=== PATIENT | male | born 1945 | race Hispanic/Latino ===

== ENCOUNTER → 2022-01-08 | Outpatient (CLI) | payer OTHER | END | disposition home or self-care (01) | LOC: RAH 13:55 | PROVIDERS: ATTEND Internal Medicine | DX: I65.23 Occlusion and stenosis of bilateral carotid arteries (principal); R09.89 Other specified symptoms and signs involving the circulatory and respiratory systems | CPT/HCPCS: 93880 ==

== ENCOUNTER → 2022-03-27 | Outpatient (CLI) | payer OTHER, MEDICARE ==
[~2022-03-27] MED LIST: IOHEXOL 350 MG/ML 100ML INFUS..BTL IV ONE
== END | disposition home or self-care (01) ==
LOC: RAH 10:03
PROVIDERS: ATTEND Internal Medicine
DX: R09.89 Other specified symptoms and signs involving the circulatory and respiratory systems (principal); I65.22 Occlusion and stenosis of left carotid artery
CPT/HCPCS: 70498; Q9967

== ENCOUNTER → 2022-05-23 | Outpatient (CLI) | payer OTHER | END | disposition home or self-care (01) | LOC: RAH 13:07 | PROVIDERS: ATTEND Internal Medicine Cardiovascular Disease | DX: Z13.6 Encounter for screening for cardiovascular disorders (principal); I51.5 Myocardial degeneration | CPT/HCPCS: 75571 ==

== ENCOUNTER → 2022-07-05 | Outpatient (CLI) | payer OTHER, MEDICARE ==
[~2022-07-05] MED LIST changes: +ACETAMINOPHEN PO; +ASPI-1197 PO; +ATOR20TA65 PO; +BISA-189 PO; +CALC-1125 PO; +CLOP75TA32 PO; +FAMO20TA8 PO; +FISH1CAP50 PO; +GLIP10TA9 PO; -IOHEXOL 350 MG/ML 100ML INFUS..BTL IV ONE; +IRON PO; +LINA5TAB PO; +LISI10TA24 PO; +METO25TA6 PO; +TERA10CA4 PO; +VITAMIN B 12 PO; +VITAMIN D PO
== END | disposition home or self-care (01) ==
LOC: RAH 09:47
PROVIDERS: ATTEND Internal Medicine
DX: N64.4 Mastodynia (principal)
CPT/HCPCS: 76641

== ENCOUNTER → 2022-09-19 | Outpatient (CLI) | payer OTHER ==
[~2022-09-19] MED LIST changes: +ACET-2743 PO; -ACETAMINOPHEN PO; +AEC81 PO; -ASPI-1197 PO; +tylenol arthritis PO
== END | disposition home or self-care (01) ==
LOC: SHCH 11:19
PROVIDERS: ATTEND Internal Medicine Cardiovascular Disease
DX: I65.23 Occlusion and stenosis of bilateral carotid arteries (principal); I48.0 Paroxysmal atrial fibrillation
CPT/HCPCS: 93880

== ENCOUNTER → 2022-12-26 | Outpatient (CLI) | payer OTHER | END | disposition home or self-care (01) | LOC: SHCH 13:34 | PROVIDERS: ATTEND Internal Medicine Cardiovascular Disease | DX: R22.43 Localized swelling, mass and lump, lower limb, bilateral (principal); I65.22 Occlusion and stenosis of left carotid artery | CPT/HCPCS: 93970 ==

== ENCOUNTER → 2023-11-25 | Outpatient (CLI) | payer OTHER | END | disposition home or self-care (01) | LOC: SHCH 10:07 | PROVIDERS: ATTEND Internal Medicine Cardiovascular Disease | DX: I87.2 Venous insufficiency (chronic) (peripheral) (principal) | CPT/HCPCS: 93971 ==

== ENCOUNTER 2024-06-14 23:20 | Inpatient (IN) | payer OTHER ==
[~2024-06-14] VITALS: Ht 182.9 cm; Wt 92.3 kg
[~2024-06-14 23:20] MED LIST changes: +GLIP10TA16 PO; -GLIP10TA9 PO
--- NOTE | 2024-06-14 23:49 | ERN ---
General Chief Complaint: Syncope Stated Complaint: NEAR SYNCOPE Time Seen by MD: 23:27 History of Present Illness Initial Comments Patient comes in with complaint of weakness after a bowel movement. Per patient is insulin-dependent diabetic. His sugars typically run in the 200s. He takes insulin twice a day. However this week it has been running in the 300s. Tonight he had a normal bowel movement per patient although states that he seems to have some difficulty with bowel movements. She was watching him. Afterwards he got up and tried to walk back. However he got weak and was having trouble walking. Per he got sweaty. He stated that he could not walk. He was caught by family and gently laid down. He did not get hurt. He denies any injury. He denies any pain. He states that his bowel movement was normal in color for him. states it was a dark green. However this is unusual for him to have an episode like this Allergies: Coded Allergies: No Known Allergies (Unverified Allergy, Unknown, 05/23/22) Home Meds Reported Medications [tylenol arthritis] No Conflict Check, 1 TAB PO BID 07/20/22 Acetaminophen (Tylenol Extra Strength) 500 Mg Tablet, 500 MG PO AD PRN for PAIN, TAB 07/20/22 Aspirin (ASPIRIN 81 MG ECTAB) 81 Mg Ectab, 81 MG PO AM, TAB.EC 07/20/22 Famotidine (Famotidine) 20 Mg Tablet, 20 MG PO BID, TAB 06/29/22 Bisacodyl (Dulcolax 5Mg Tab) 5 Mg Tablet.dr, 5 MG PO DAILY PRN for constipation, TAB 06/29/22 Metoprolol Tartrate (Metoprolol Tartrate) 25 Mg Tablet, 25 MG PO BID, TAB 06/29/22 Terazosin HCl (Terazosin HCl) 10 Mg Capsule, 10 MG PO HS, CAP 06/29/22 Calcium Carbonate (Calcium) 600 Mg Tablet, 600 MG PO BID, TAB 06/29/22 Clopidogrel Bisulfate (Clopidogrel) 75 Mg Tablet, 75 MG PO AM, TAB 06/29/22 Atorvastatin Calcium (Atorvastatin Calcium) 20 Mg Tablet, 20 MG PO AM, TAB 06/29/22 Glipizide (Glipizide) 10 Mg Tablet, 10 MG PO BID, TAB 06/29/22 Linagliptin (Tradjenta) 5 Mg Tablet, 5 MG PO AM, TAB 06/29/22 Lisinopril (Lisinopril) 10 Mg Tablet, 10 MG PO AM, TAB 06/29/22 [Vitamin B 12] 1,000 No Conflict Check, 1 TAB PO AM 06/29/22 [Vitamin D] 25 No Conflict Check, 25 MCG PO AM 06/29/22 [Iron] No Conflict Check, 325 MG PO AM 06/29/22 Dumont-3 Fatty Acids/Fish Oil ([place] 3 Fish Oil Softgel) 1 Each Capsule.dr, 1 EACH PO HS, CAP 06/29/22 Past Medical History Past Medical History: Diabetes-Type II, High Cholesterol, Hypertension Past Surgical History: Unknown Surgical History Other: UMBILICAL HERNIA Social History Social History: Negative, Lives with family ROS Dictation Ten systems reviewed and negative except as noted in HPI Physical Exam Physical Exam Dictation GEN: non toxic, NAD HEENT: atrumatic, PERRL, EOMI, conjunctivae normal NECK: Soft supple nontender Heart RRR, no murmurs Chest: No deformity Lungs: Lungs clear to auscultation Ab: Soft nondistended nontender Back: No midline step-offs. No gross deformity. No CVA tenderness : m/s: Moving all four extremities. No gross deformity Neuro: CN 2-12 intact. Moving all four extremities. Psych: Cooperative Results Laboratory and Microbiology Lab and Micro Result Laboratory Tests Test 06/14/24 23:54 06/15/24 00:29 06/15/24 01:02 White Blood Count 6.6 K/uL (4.8-10.8) Red Blood Count 4.06 MIL/uL (4.50-6.20) L Hemoglobin 13.0 g/dL (14.0-18.0) L Hematocrit 37.1 % (42-54) L Mean Corpuscular Volume 91.4 fL (79-99) Mean Corpuscular Hemoglobin 32.0 pg (27.0-33.0) Mean Corpuscular Hemoglobin Concent 35.0 g/dL (32.0-36.0) Red Cell Distribution Width 12.5 % (11.0-15.5) Platelet Count 121 K/uL (130-400) L Mean Platelet Volume 10.7 fL (7.5-10.5) H Immature Granulocyte % (Auto) 0.5 % (0-1) Neutrophils (%) (Auto) 73.0 % (40.0-77.0) Lymphocytes (%) (Auto) 14.9 % (21.0-51.0) L Monocytes (%) (Auto) 11.1 % (3.0-13.0) Eosinophils (%) (Auto) 0.2 % (0.0-8.0) Basophils (%) (Auto) 0.3 % (0.0-5.0) Neutrophils # (Auto) 4.8 K/uL (1.8-7.7) Lymphocytes # (Auto) 1.0 K/uL (1.0-4.8) Monocytes # (Auto) 0.7 K/uL (0.1-1.0) Eosinophils # (Auto) 0.01 K/uL (0.00-0.70) Basophils # (Auto) 0.02 K/uL (0.00-0.20) Absolute Immature Granulocyte (auto 0.03 K/uL (0-1) Nucleated Red Blood Cells 0.0 % (0.0-0.19) Sodium Level 136 mmol/L (136-145) Potassium Level 3.9 mmol/L (3.5-5.1) Chloride Level 98 mmol/L (101-111) L Carbon Dioxide Level 33 mmol/L (21-32) H Blood Urea Nitrogen 32 mg/dL (7-18) H Creatinine 2.1 mg/dL (0.5-1.3) H Glomerular Filtration Rate Calc 31 mL/min (>90) Random Glucose 250 mg/dL (70-105) H Lactic Acid Level 1.7 mmol/L (0.8-2.5) Total Calcium 9.0 mg/dL (8.5-10.1) Total Bilirubin 4.9 mg/dL (0.2-1.0) H Aspartate Amino Transf (AST/SGOT) 1060 U/L (10-37) *H Alanine Aminotransferase (ALT/SGPT) 954 U/L (12-78) *H Alkaline Phosphatase 516 U/L (50-136) H Total Creatine Kinase 200 U/L (21-232) Troponin I High Sensitivity 14.7 ng/L (4-75) Total Protein 6.5 g/dL (6.0-8.3) Albumin 3.0 g/dL (3.5-5.0) L Procalcitonin 0.49 ng/mL (0.05-0.5) Urine Color YELLOW (YELLOW) Urine Appearance CLEAR (CLEAR) Urine pH 5.5 (5.0-8.0) Urine Specific [place] 1.025 (1.001-1.031) Urine Protein NEGATIVE mg/dL (NEGATIVE) Urine Glucose (UA) >=1000 mg/dL (NEGATIVE) H Urine Ketones NEGATIVE mg/dL (NEGATIVE) Urine Occult Blood NEGATIVE (NEGATIVE) Urine Nitrate NEGATIVE (NEGATIVE) Urine Bilirubin NEGATIVE mg/dL (NEGATIVE) Urine Urobilinogen 2.0 mg/dL (0.2-1.0) H Urine Leukocyte Esterase NEGATIVE Ivonne/uL Urine RBC 2-5 /HPF (0-1) H Urine WBC 6-10 /HPF (0-1) H Urine Squamous Epithelial Cells RARE /HPF (0-2) Urine Bacteria RARE /HPF (None Seen) Lipase 39 U/L (16-77) Labs Reviewed?: Yes EKG/XRAY/US/CT/MRI EKG Comment Sinus rhythm 75 first-degree AV block HI of 219 QRS of 101 QTC of 458 left axis deviation QRS complexes narrow nonspecific STT wave flattening and changes. Interpretation abnormal Ultrasound Comment DISCUSSED WITH EDUCATION RESEARCH ANALYST. STONE AND SLUDGE SEEN ON CT BUT NOT WELL VISUA LIZED ON ULTRASOUND. EXAM LIMITED THERE IS EXCESSIVE BOWEL GAS. COMMON BILE DUCT 5 MM. GALLBLADDER WALL NOT THICKENED. [address] Scan Comment CT ABDOMEN/PELVIS W/O CONTRAST HISTORY: Elevated liver function tests COMPARISON: None TECHNIQUE: Multiple sequential axial images of the abdomen and pelvis were obtained from the dome of the diaphragm through symphysis pubis. Patient was not given contrast through intravenous route. Oral contrast was not given. FINDINGS: No pleural effusion is seen bilaterally. There is no evidence of parenchymal disease or pulmonary nodule of the visualized lower lungs. Degenerative changes of the thoracolumbar spine are present. The heart is not enlarged. Liver measures 16.4 cm. Calcified granuloma are seen in the liver and spleen. Gallbladder is distended with gallstones and sludge material. There is right anterior renal cyst measuring 4.5 cm. The liver, spleen, adrenal glands and pancreas are unremarkable. There is no evidence of hydronephrosis bilaterally. No evidence of renal stone is seen. Fecal material is seen in the colon. There are normal size retroperitoneal and mesenteric lymph nodes. No ascites is seen. Atherosclerotic changes are present. Pelvic sidewalls are symmetric bilaterally. There are bilateral inguinal hernias with fat content. Prostate gland measures 6.1 cm. Bladder is well distended without wall thickening. IMPRESSION: 1. Distended gallbladder with gallstones and sludge material. Fecal material in the colon. There are bilateral inguinal hernias with fat content. CT was performed with one or more following dose reduction techniques: automated exposure control, adjustment of the mA and kv according to patient's size, or use of a iterative reconstruction technique. DICTATED BY: ADRIANE REDMOND MD DATE: 06/15/24152 ELECTRONICALLY SIGNED BY: ADRIANE REDMOND MD DATE: 06/15/24205 MDM Patient has elevated LFTs and T bili. Multiple differentials considered. However no tenderness to epigastric of the right upper quadrant. Negative Yin's on exam. Add lipase. Multiple differentials considered. We will do ultrasound of the abdomen pelvis as well as CT. Patient has elevated LFTs and T bili and alk-phos. Lipase normal. On CT abdomen has gallbladder stones and sludge. Pending ultrasound. No right upper quadrant tenderness. No white count. No fever. However we will cover empirically with Zosyn at this point. ULTRASOUND SHOWS NORMAL COMMON BILE DUCT AND GALLBLADDER WALL. NO PERICHOLECYSTIC FLUID. Patient does have notably elevated LFTs. This was discussed with Dr. Phillips patient's primary. Patient will be admitted for further evaluation. ED Course Orders Procedure Category Date Status Time Vital Signs Per CPOE 06/14/24 Transmitted Routine 23:28 Oxygen By Nc/Pulse Ox CPOE 06/14/24 Transmitted 23:28 Iv Insertion CPOE 06/14/24 Transmitted 23:28 Cbc With Differential LAB 06/14/24 Complete 23:28 Cardiac Panel LAB 06/14/24 Complete 23:28 12 Lead Ekg Tracing- EKG 06/14/24 Logged Technical 23:28 0.9%Nacl 1000ml (Ns PHA 06/15/24 Complete 1000ml) 00:00 Urinalysis LAB 06/14/24 Complete W/Microscopic 23:44 Procalcitonin LAB 06/14/24 Complete 23:44 Lactic Acid LAB 06/14/24 Complete 23:44 Comprehensive LAB 06/14/24 Complete Metabolic Panel 23:54 Lipase LAB 06/15/24 Complete 00:50 Us Abdominal Ruq\Ltd US 06/15/24 Taken 00:50 Ct Abdomen/Pelvis W/O CT 06/15/24 Resulted Contrast 00:52 Culture Urine SRIDHAR 06/15/24 In Process 01:11 Zosyn 3.375gm+Ns 50ml PHA 06/15/24 Complete (Zosyn 3.375gm+Ns 02:30 Edm Admit Bridge Order ADM 06/15/24 Transmitted 03:25 Current Medications Medications (Trade) Dose Ordered Sig/Mina Route PRN Reason Start Time Stop Time Status Last Admin Dose Admin Piperacillin Sod/ Tazobactam Sod (Zosyn 3.375gm+NS 50ml) 3.375 gm ONCE ONCE IV 06/15/24 02:30 06/15/24 02:33 DC 06/15/24 02:44 Sodium Chloride 1,000 ml @ 999 mls/hr Q1H1M IV 06/15/24 00:00 06/15/24 02:32 DC 06/15/24 00:28 Vital Signs Date Time Temp Pulse Resp B/P (MAP) Pulse Ox O2 Delivery O2 Flow Rate FiO2 06/15/24 02:20 70 20 120/54 95 Room Air* 0 21 06/15/24 00:38 64 18 118/42 95 Room Air* 0 21 06/14/24 23:57 76 18 92 Room Air* 0 21 06/14/24 23:24 97.9 76 18 108/54 95 Room Air 0 DX & DISP Disposition: Inpatient Departure Impression: Primary Impression: Near syncope Additional Impression: Abnormal LFTs Condition: Stable Referrals: JIM PHILLIPS MD (PCP) BRO PAYNE MD Jun 14, 2024 23:49
[2024-06-15] VITALS (8 sets, daily range): BP systolic 108–132; BP diastolic 52–62; PULSE 67–81; RESP 16–20; TEMP 98.1–100; O2SAT 95
[2024-06-15 00:03] LABS: BASOPHILS # (AUTO) 0.02 K/uL (0.00-0.20); BASOPHILS % (AUTO) 0.3 % (0.0-5.0); EOSINOPHILS # (AUTO) 0.01 K/uL (0.00-0.70); EOSINOPHILS % (AUTO) 0.2 % (0.0-8.0); HEMATOCRIT 37.1 % (42-54); IMMATURE GRANULOCYTE ABSOLUTE 0.03 K/uL (0-1); LYMPHOCYTES % (AUTO) 14.9 % (21.0-51.0); MEAN CORPUSCULAR VOLUME 91.4 fL (79-99); MONOCYTES # (AUTO) 0.7 K/uL (0.1-1.0); MONOCYTES % (AUTO) 11.1 % (3.0-13.0); NEUTROPHILS # (AUTO) 4.8 K/uL (1.8-7.7); PLATELET COUNT (AUTO) 121 K/uL (130-400); RED BLOOD CELL COUNT(AUTO) 4.06 MIL/uL (4.50-6.20); RED CELL DISTRIBUTION WIDTH 12.5 % (11.0-15.5); WHITE BLOOD COUNT (AUTO) 6.6 K/uL (4.8-10.8)
[2024-06-15 00:14] LABS: CREATININE 2.1 mg/dL (0.5-1.3); POTASSIUM 3.9 mmol/L (3.5-5.1)
[2024-06-15] MEDS: 0.9%NACL 1000ML 1,000 ML IV SCH ×2 (00:28→04:11)
[2024-06-15 00:30] LABS: BILIRUBIN,TOTAL 4.9 mg/dL (0.2-1.0); TOTAL PROTEIN, SERUM 6.5 g/dL (6.0-8.3)
[2024-06-15 01:11] LABS: APPEARANCE,URINE CLEAR (CLEAR); BACTERIA,URINE RARE /HPF (None Seen); BILIRUBIN,URINE NEGATIVE (NEGATIVE); COLOR,URINE YELLOW (YELLOW); GLUCOSE, URINE (UA) >=1000 mg/dL (NEGATIVE); KETONES,URINE NEGATIVE (NEGATIVE); LEUKOCYTE ESTERASE ,URINE NEGATIVE Leu/uL (NEGATIVE); NITRATE,URINE NEGATIVE (NEGATIVE); OCCULT BLOOD,URINE NEGATIVE (NEGATIVE); PH,URINE 5.5 (5.0-8.0); PROTEIN,URINE NEGATIVE (NEGATIVE); SQUAMOUS EPITHELIAL CELL,UR RARE /HPF (0-2)
--- NOTE | 2024-06-15 02:06 | HMCIMG ---
CT ABDOMEN/PELVIS W/O CONTRAST HISTORY: Elevated liver function tests COMPARISON: None TECHNIQUE: Multiple sequential axial images of the abdomen and pelvis were obtained from the dome of the diaphragm through symphysis pubis. Patient was not given contrast through intravenous route. Oral contrast was not given. FINDINGS: No pleural effusion is seen bilaterally. There is no evidence of parenchymal disease or pulmonary nodule of the visualized lower lungs. Degenerative changes of the thoracolumbar spine are present. The heart is not enlarged. Liver measures 16.4 cm. Calcified granuloma are seen in the liver and spleen. Gallbladder is distended with gallstones and sludge material. There is right anterior renal cyst measuring 4.5 cm. The liver, spleen, adrenal glands and pancreas are unremarkable. There is no evidence of hydronephrosis bilaterally. No evidence of renal stone is seen. Fecal material is seen in the colon. There are normal size retroperitoneal and mesenteric lymph nodes. No ascites is seen. Atherosclerotic changes are present. Pelvic sidewalls are symmetric bilaterally. There are bilateral inguinal hernias with fat content. Prostate gland measures 6.1 cm. Bladder is well distended without wall thickening. IMPRESSION: 1. Distended gallbladder with gallstones and sludge material. Fecal material in the colon. There are bilateral inguinal hernias with fat content. CT was performed with one or more following dose reduction techniques: automated exposure control, adjustment of the mA and kv according to patient's size, or use of a iterative reconstruction technique.
[2024-06-15] MEDS: ZOSYN 3.375GM +NS 50ML IV ONE (02:44)
[2024-06-15] MEDS ORDERED: PoTASSium chloRIDE 20MEQ/100ML 100 ML IV PRN (04:00)
[2024-06-15] MEDS ORDERED: morPHINE 2 MG SYG IVP PRN (04:00)
[2024-06-15] MEDS ORDERED: ondanSETRON 4MG INJ IVP PRN (04:00)
[2024-06-15] MEDS: cefTRIAXone 1G VIAL IVPB SCH (04:11)
[2024-06-15] MEDS: INSULIN humuLIN R 100 UNIT/ML 3ML SQ SCH (06:00)
--- NOTE | 2024-06-15 07:34 | EKG ---
[facility] Test Date: 2024-06-14 Test Time: 23:35:01 Pat Name: JESUS SARMIENTO Department: [facility] Room: 228 1 Gender: M Technical Support Engineer: [id number] : 1945 Requested By: BRO PAYNE Order Number: [id number] Reading MD: Red Bergman Measurements Intervals [place] Rate: 75 P: 52 PA: 219 QRS: -14 QRSD: 101 T: 52 QT: 411 QTc: 458 Interpretive Statements Sinus rhythm Borderline prolonged PA interval Compared to ECG 09/11/2022 12:12:06 No significant changes Electronically Signed On 06-16-2024 06:55:58 CONVEYOR BELT INSTALLER by Red Bergman Please click the below link to view image of tracing.
--- NOTE | 2024-06-15 08:30 | HMCIMG ---
US ABDOMINAL RUQ\E\LTD HISTORY: elevated lft COMPARISON: None FINDINGS: There is mild fatty infiltration of the liver. There are no focal liver masses. The liver is not enlarged.Previous CT same day showed definite small stones in the gallbladder. These are not well visualized by ultrasound. The gallbladder appears otherwise normal, there is no wall thickening or pericholecystic edema. Common duct is normal at 5 mm.. There is a 4 cm simple appearing cyst right kidney. Right kidney is otherwise normal with no evidence of mass, hydronephrosis or stone.The pancreas is obscured by overlying bowel gas. Intrahepatic biliary tree does not appear distended. IMPRESSION: 1. Previous CT the same day showed definite stones, these are not well visualized on the current ultrasound. 2. Gallbladder appears otherwise normal with no wall thickening or pericholecystic edema. 3. 4 cm right renal cyst. 4. Otherwise unremarkable exam although the pancreas was not well visualized.
[2024-06-15] MEDS ORDERED: APIX5TAB PO (08:46)
[2024-06-15] MEDS ORDERED: DRON400T7 PO (08:46)
[2024-06-15] MEDS ORDERED: ASPI-1197 PO (08:46)
[2024-06-15] MEDS ORDERED: EMPA10TA PO (08:46)
[2024-06-15] MEDS ORDERED: LATA2.5D14 OD (08:46)
[2024-06-15] MEDS ORDERED: DOCU100C33 PO (08:46)
[2024-06-15] MEDS ORDERED: FURO20TA4 PO (08:46)
[2024-06-15] MEDS ORDERED: SEMA0.258 SQ (08:46)
[2024-06-15] MEDS ORDERED: TERA5CAP4 PO (08:46)
[2024-06-15] MEDS ORDERED: LORA10TA7 PO (08:46)
[2024-06-15] MEDS ORDERED: FAMO20TA8 PO (08:46)
[2024-06-15] MEDS ORDERED: METO25TA6 PO (08:46)
[2024-06-15] MEDS ORDERED: FERS325 PO (08:46)
[2024-06-15] MEDS ORDERED: INSU3INS3 SQ ×2 (08:46)
[2024-06-15] MEDS ORDERED: ATOR20TA65 PO (08:46)
--- NOTE | 2024-06-15 09:59 | NUR ---
PT WAS TAKEN DOWN TO MRI FOR MRCP AND FAMILY MEMBERS HAD JUST ARRIVED AND WERE ADVISED OF THE PROCEDURE.
--- NOTE | 2024-06-15 11:17 | HMCIMG ---
MRCP(ABDWO)CHOLANGIOPANCREATOG REASON: ELEVATED LIVER ENZYMES COMPARISON: CT abdomen and pelvis 07/13/2024 TECHNIQUE: Routine images are obtained in the coronal and axial plane with T1, proton density, T2 and gradient recalled sequences. MRCP images were generated following coronal fluid sensitive acquisition followed by maximum pixel intensity projection technique. FINDINGS: There is a very small stones present in an otherwise normal-appearing gallbladder. There is no wall thickening or edema. Common duct is normal caliber at 5 mm. There are no focal filling defects to suggest choledocholithiasis however the visualized gallstones are very small and may be difficult to see on MRCP. There are no focal liver lesions. The pancreas appears normal, there is no evidence of mass or pancreatitis. Visualized portions of the kidneys appear normal. There are no focal fluid collections. There is no free fluid. IMPRESSION: 1. Multiple very small stones in the gallbladder, there is no wall thickening or edema. 2. Common duct appears normal at 5 mm and there is no MR CP evidence of choledocholithiasis.
--- NOTE | 2024-06-15 12:37 | HP ---
HISTORY AND PHYSICAL Date of Visit: Jun 15, 2024 Time of Visit: 12:37 ADMISSION DATE: Jun 15, 2024 at 03:30 CC: SYNCOPE HPI: This is a 78 yr old man with hx PAfib on chronic anticoagulation who presented with complaint of weakness after a bowel movement. Per patient is insulin- dependent diabetic. His sugars typically run in the 200s and they had been running on the high side in the past few days. Despite taking his insulin twice a day his BS had been running in the 300s. Tonight he had a normal bowel movement per patient although states that he seems to have some difficulty with bowel movements. She was watching him. Afterwards he got up and tried to walk back. However he got weak and was having trouble walking. Per he got sweaty. He stated that he could not walk. He was caught by family and gently laid down after they described him passing out when they tried to pick him up. Th sat him back down and he did not get hurt. He denies any injury. He denies any pain. He states that his bowel movement was normal in color for him. states it was a dark green. However this is unusual for him to have an episode like this. He has had decreased po in take with low appetite for the past 2-3 days. He denied any fevers chills nausea or vomiting or any abdominal pain. 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 Smith on 07/24/22 PERSISTENT AFIB SECONDARY HYPERCOAGULABLE STATE CHRONIC ANTI COAGULATION ON ELIQUIS DYSPHASIA AND DYSPHONIA KERATOCONJUNCTIVITIS SOCIAL HISTORY: LIVES LOCALLY WITH NO CURRENT ALCOHOL TOBACCO OR DRUG ABUSE FAMILY HISTORY: + DM HTN CVD ^ Patient History: Cardiovascular disease MOTHER, Diabetes mellitus FATHER, BROTHER, BROTHER, BROTHER, BROTHER BROTHER SISTER SISTER SISTER SON Hypertension MOTHER, Allergies: Coded Allergies: No Known Allergies (Unverified Allergy, Unknown, 05/23/22) Scheduled Apixaban (Eliquis), 5 MG PO BID Aspirin (Aspirin), 81 MG PO DAILY Atorvastatin Calcium (Atorvastatin Calcium), 20 MG PO HS Dronedarone Hydrochloride (Multaq), 400 MG PO BID Empagliflozin (Jardiance), 10 MG PO DAILY Ferrous Sulfate (Ferrous Sulfate), 325 MG PO DAILY Furosemide (Furosemide), 20 MG PO DAILY Insulin Glargine,Hum.rec.anlog (Lantus Solostar), 22 UNIT SQ AM Insulin Glargine,Hum.rec.anlog (Lantus Solostar), 12 UNIT SQ PM Latanoprost (Latanoprost), 1 DROP OD BID Loratadine (Loratadine), 10 MG PO DAILY Metoprolol Tartrate (Metoprolol Tartrate), 25 MG PO BID Semaglutide (Ozempic), 0.25 MG SQ QWEEK Terazosin HCl (Terazosin HCl), 5 MG PO DAILY Scheduled PRN Docusate Sodium (Docusate Sodium), 100 MG PO DAILY PRN for CONSTIPATION Famotidine (Famotidine), 20 MG PO DAILY PRN for HEARTBURN Discontinued Medications Acetaminophen (Tylenol Extra Strength), 500 MG PO AD PRN for PAIN, (Reported) Aspirin (Aspirin 81 Mg Ectab), 81 MG PO AM, (Reported) Atorvastatin Calcium (Atorvastatin Calcium), 20 MG PO AM, (Reported) Bisacodyl (Dulcolax 5Mg Tab), 5 MG PO DAILY PRN for constipation, (Reported) Calcium Carbonate (Calcium), 600 MG PO BID, (Reported) Clopidogrel Bisulfate (Clopidogrel), 75 MG PO AM, (Reported) Famotidine (Famotidine), 20 MG PO BID, (Reported) Glipizide (Glipizide), 10 MG PO BID, (Reported) Linagliptin (Tradjenta), 5 MG PO AM, (Reported) Lisinopril (Lisinopril), 10 MG PO AM, (Reported) Metoprolol Tartrate (Metoprolol Tartrate), 25 MG PO BID, (Reported) [place]-3 Fatty Acids/Fish Oil ([place] 3 Fish Oil Softgel), 1 EACH PO HS, (Reported) Terazosin HCl (Terazosin HCl), 10 MG PO HS, (Reported) [Iron], 325 MG PO AM, (Reported) [Vitamin B 12], 1 TAB PO AM, (Reported) [Vitamin D], 25 MCG PO AM, (Reported) [tylenol arthritis], 1 TAB PO BID, (Reported) Review of Systems Normal Eyes:, Normal Ear/Nose/Mouth/Throat, Normal Cardiovascular:, Normal Respiratory:, Normal Gastrointestinal:, Normal Genitourinary:, Normal Integumentary:, Normal Musculoskeletal:, Normal Neurological:, Normal Psychological:, Normal Endocrine:, Normal Hematologic/Lymphatic:, Normal Allergic/Immunologic:; Abnormal Constitutional: (LOW PO INTAKE AND LOW APPETITES WITH GENERALIZED WEAKNESS) Physical Exam Vital Signs Vital Signs Date Time Temp Pulse Resp B/P (MAP) Pulse Ox O2 Delivery O2 Flow Rate FiO2 06/14/24 23:24 97.9 76 18 108/54 95 Room Air 0 06/14/24 23:57 21 Appearance: Well dev, well nourished Eyes: Clear, PERRL, EOM Normal Cardiovascular: No Edema, Abnormal (IRREG RATE AND RHYTHM) Respiratory: Lungs clear G.I.: Normal bowel sounds, No rebound tenderness Musculoskeletal: Strength/Tone WNL Skin: No rash/ulcers Neurology: Nerves I-XII intact, Sensation WNL Psychology: Insight WNL, Orientation WNL, Memory WNL, Affect WNL Diagnostics Laboratory Tests Test 06/14/24 23:54 06/15/24 00:29 06/15/24 01:02 06/15/24 06:14 Range/Units White Blood Count 6.6 4.8-10.8 K/uL Red Blood Count 4.06 4.50-6.20 MIL/uL Hemoglobin 13.0 14.0-18.0 g/dL Hematocrit 37.1 42-54 % Mean Corpuscular Volume 91.4 79-99 fL Mean Corpuscular Hemoglobin 32.0 27.0-33.0 pg Mean Corpuscular Hemoglobin Concent 35.0 32.0-36.0 g/dL Red Cell Distribution Width 12.5 11.0-15.5 % Platelet Count 121 130-400 K/uL Mean Platelet Volume 10.7 7.5-10.5 fL Immature Granulocyte % (Auto) 0.5 0-1 % Neutrophils (%) (Auto) 73.0 40.0-77.0 % Lymphocytes (%) (Auto) 14.9 21.0-51.0 % Monocytes (%) (Auto) 11.1 3.0-13.0 % Eosinophils (%) (Auto) 0.2 0.0-8.0 % Basophils (%) (Auto) 0.3 0.0-5.0 % Neutrophils # (Auto) 4.8 1.8-7.7 K/uL Lymphocytes # (Auto) 1.0 1.0-4.8 K/uL Monocytes # (Auto) 0.7 0.1-1.0 K/uL Eosinophils # (Auto) 0.01 0.00-0.70 K/uL Basophils # (Auto) 0.02 0.00-0.20 K/uL Absolute Immature Granulocyte (auto 0.03 0-1 K/uL Nucleated Red Blood Cells 0.0 0.0-0.19 % Sodium Level 136 136-145 mmol/L Potassium Level 3.9 3.5-5.1 mmol/L Chloride Level 98 101-111 mmol/L Carbon Dioxide Level 33 21-32 mmol/L Blood Urea Nitrogen 32 7-18 mg/dL Creatinine 2.1 0.5-1.3 mg/dL Glomerular Filtration Rate Calc 31 >90 mL/min Random Glucose 250 70-105 mg/dL Lactic Acid Level 1.7 0.8-2.5 mmol/L Total Calcium 9.0 8.5-10.1 mg/dL Total Bilirubin 4.9 0.2-1.0 mg/dL Aspartate Amino Transf (AST/SGOT) 1060 10-37 U/L Alanine Aminotransferase (ALT/SGPT) 954 12-78 U/L Alkaline Phosphatase 516 50-136 U/L Total Creatine Kinase 200 21-232 U/L Troponin I High Sensitivity 14.7 4-75 ng/L Total Protein 6.5 6.0-8.3 g/dL Albumin 3.0 3.5-5.0 g/dL Procalcitonin 0.49 0.05-0.5 ng/mL Urine Color YELLOW YELLOW Urine Appearance CLEAR CLEAR Urine pH 5.5 5.0-8.0 Urine Specific [place] 1.025 1.001-1.031 Urine Protein NEGATIVE NEGATIVE mg/dL Urine Glucose (UA) >=1000 NEGATIVE mg/dL Urine Ketones NEGATIVE NEGATIVE mg/dL Urine Occult Blood NEGATIVE NEGATIVE Urine Nitrate NEGATIVE NEGATIVE Urine Bilirubin NEGATIVE NEGATIVE mg/dL Urine Urobilinogen 2.0 0.2-1.0 mg/dL Urine Leukocyte Esterase NEGATIVE NEGATIVE Ivonne/uL Urine RBC 2-5 0-1 /HPF Urine WBC 6-10 0-1 /HPF Urine Squamous Epithelial Cells RARE 0-2 /HPF Urine Bacteria RARE None Seen /HPF Lipase 39 16-77 U/L Whole Blood Glucose 186 70-110 MG/DL Test 06/15/24 11:02 Range/Units Whole Blood Glucose 162 70-110 MG/DL Assessment/Plan Assessment/Plan ASSESSMENT: DM II W/ OTHER SPECIFIED COMPLICATION RELATED TO DIABETIC DYSLIPIDEMIA / HYPERTRIGLYCERIDEMIA 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 Smith on 07/24/22 PERSISTENT AFIB SECONDARY HYPERCOAGULABLE STATE CHRONIC ANTI COAGULATION ON ELIQUIS DYSPHASIA AND DYSPHONIA KERATOCONJUNCTIVITIS HE PRESENTED WITH HYPOTENSIVE SYNCOPE ESTHER, DEHYDRATION, OBSTRUCTIVE JAUNDICE GALL STONES AND CHOLEDOCHOLITHIASIS CONSTIPATION BILATERAL INGUINAL FAT CONTAINING HERNIAS PLAN: KEEP NPO AND CLINICALLY STABLE W/O N/V OR ABDOMINAL PAIN HYDRATE WITH IVF AND HOLD DIURETICS HOLD PB MEDICATIONS AND ADJUST NEEDED HOLD OHG AND MONITOR GLUCOSE AND COVER WITH INSULIN PRN HOLD GLP1 HOLD ELIQUIS AND COVER WITH LOVENOX IN THE NEXT 24 HRS MONITOR RENAL FN AND CBC CLOSELY EMPIRIC ANTIBIOTICS WITH ROCEPHIN ANALGESICS AND ANTI EMETICS IF NEEDED CATHARTICS FOR CONSTIPATION MONITOR URINE OUTPUT AND BLADDER SCAN PRN TO R/O URINARY RETENTION PRN CONTINUE MULTAQ AND BETABLOCKER FOR HR CONTROL MONITOR ON TELEMETRY FU MRCP AND CONSIDER GI EVAL FOR ERCP IF LFT'S DO NOT IMPROVE OR PERSISTENT SIGNS OF OBSTRUCTION ON MRCP DVT WITH LOW DOSE LOVENOX AND STRESS ULCER PROPHYLAXIS WITH IV FAMOTIDINE INCREASE REHAB TOLERATED BLADDER SCAN PRN URINARY RETENTION WHICH HE HAS HAD IN THE PAST ADD TAMSULOSIN QHS ANSWERED ALL QUESTIONS AT BEDSIDE PER PATIENT AND EXTENDED FAMILY JIM NUNO MD Jun 15, 2024 12:37
[2024-06-15] MEDS: BisaCODYL 10 MG SUPP.RECT RC ONE (13:00)
[2024-06-15] MEDS ORDERED: PoTASSium chloRIDE 10MEQ/100ML 100 ML IV PRN (13:00)
[2024-06-15] MEDS ORDERED: metoPROLOL tartRATE 1 MG/ML 5ML VIAL IV PRN (13:00)
[2024-06-15] MEDS ORDERED: LACTULOSE 20 GM/30 ML UDCUP PO PRN (13:00)
--- NOTE | 2024-06-15 16:01 | NUR ---
Discharge Planning: Pt. states he lives with his spouse. Contact number for Kristy Hernandez is . PCP is Kathy Ruggiero and preferred pharmacy is [facility] in [place]. Pt. states he is independent with all ADL's. No home health, provider services, or DME. DCP is for home. No d/c needs at present time. Addendum: 06/15/24 at 1603 by PARISH SNIDER RN CM Amended: Links added.
[2024-06-15] MEDS: acetaMINOPHEN 325 MG TAB PO PRN (16:29)
--- NOTE | 2024-06-15 17:30 | NUR ---
DR. NUNO CALLED AND ASK ABOUT PT'S PRESENT STATUS AND ORDERED HEPATIC PANEL LAB NOW AND WANTS THE RESULTS CALLED TO HER. ADVISED PT AND ABOUT THE LAB ORDERED AND WILL ADVISE IF THERE ARE ANY NEW ORDERS.
[2024-06-15 18:14] LABS: ALBUMIN 2.6 g/dL (3.5-5.0); BILIRUBIN,DIRECT 1.7 mg/dL (0.0-0.3); BILIRUBIN,TOTAL 3.2 mg/dL (0.2-1.0); TOTAL PROTEIN, SERUM 5.8 g/dL (6.0-8.3)
--- NOTE | 2024-06-15 18:26 | NUR ---
NOTIFIED DR. NUNO THE LAB RESULTS AND WILL BE ENTERING ORDERS. ADVISED THAT DR. MULLEN AND DR. CRUZ HAD BOTH ROUNDED TODAY BUT NOT SURE WHICH ONE WOULD BE ROUNDING TOMORROW.
[2024-06-15] MEDS: DRONEDARONE HYDROCHLORIDE 400 MG TABLET PO SCH (20:08)
[2024-06-15] MEDS: metoPROLOL tartRATE 25 MG TAB PO SCH (21:00)
[2024-06-16 03:00] VITALS: BP 119/51; PULSE 77; RESP 18; TEMP 98.7
--- NOTE | 2024-06-16 03:53 | NUR ---
Bladder Scan Bladder scan with 250 cc of urine. Denies discomfort or pain. No distention. States he has been urinating well.
[2024-06-16 03:58] LABS: HEMATOCRIT 34.7 % (42-54); MEAN CORPUSCULAR HEMOGLOBIN 32.4 pg (27.0-33.0); MEAN CORPUSCULAR HGB CONC 34.3 g/dL (32.0-36.0); MEAN CORPUSCULAR VOLUME 94.6 fL (79-99); RED BLOOD CELL COUNT(AUTO) 3.67 MIL/uL (4.50-6.20); RED CELL DISTRIBUTION WIDTH 12.8 % (11.0-15.5); WHITE BLOOD COUNT (AUTO) 10.9 K/uL (4.8-10.8)
[2024-06-16 04:12] LABS: ALBUMIN 2.4 g/dL (3.5-5.0); BILIRUBIN,DIRECT 0.9 mg/dL (0.0-0.3); BILIRUBIN,TOTAL 2.2 mg/dL (0.2-1.0); CREATININE 1.6 mg/dL (0.5-1.3); POTASSIUM 3.5 mmol/L (3.5-5.1); TOTAL PROTEIN, SERUM 5.8 g/dL (6.0-8.3)
[2024-06-16 07:00] VITALS: BP 114/61; PULSE 76; RESP 20; TEMP 98.6
[2024-06-16] MEDS: BisaCODYL 10 MG SUPP.RECT RC PRN (08:26)
[2024-06-16] MEDS: ENOXAPARIN SODIUM 30 MG/0.3 ML SQ SCH (08:26)
[2024-06-16] MEDS: FAMOTIDINE 20MG VIAL IV SCH (08:26)
[2024-06-16 11:00] VITALS: BP 109/59; PULSE 69; RESP 20; TEMP 98.7
[2024-06-16 16:00] VITALS: BP 136/59; PULSE 75; RESP 20; TEMP 98
--- NOTE | 2024-06-16 17:11 | DS ---
Discharge Summary Hospital Course Summary: 78 yr old man with hx PAfib on chronic anticoagulation who presented with complaint of weakness after a bowel movement. Per patient is insulin- dependent diabetic. His sugars typically run in the 200s and they had been running on the high side in the past few days. Despite taking his insulin twice a day his BS had been running in the 300s. Afterwards pt got up from bowel movement he got weak and was having trouble walking. Per he became sweaty. He stated that he could not walk. He was caught by family and gently laid down after they described him passing out when they tried to pick him up. They sat him back down and he did not get hurt. He denies any injury. He denies any pain. He states that his bowel movement was normal in color for him. states it was a dark green. However this is unusual for him to have an episode like this. He has had decreased po in take with low appetite for the past 2-3 days. He denied any fevers chills nausea or vomiting or any abdominal pain. Workup in the ED showed elevated LFTs concerning for underlying biliary disease. Abdominal ultrasound was ordered showing multiple small stones in the gallbladder with a normal common bile duct size that did not suggest a retained stone. There was no gallbladder wall thickening or pericholecystic fluid to suggest underlying inflammation. Patient was admitted and started on IV fluids and observation. He was made NPO and an MRCP was ordered to assess for choledocholithiasis. MRCP did not show any retained stones and by hospital day two LFTs were downtrending which suggest if there was choledocholithiasis that it had passed and the patient's episode was resolving. Patient kept one more night for continued observation and his LFTs continue to trend back to normal. He was started on a clear liquid diet which he tolerated well which was advanced to diabetic diet later in the day when she once again tolerated well. He was evaluated as stable and discharged back home. He did have an ESTHER that improved after admission. His creatinine on day of discharge was 1.6 close to his baseline function. He will be discharged home to resume his home medications however due to his recent ESTHER his Lasix we will be held. The indication for his Lasix is unknown as his last recorded echocardiogram shows a normal ejection fraction and he did not appear to have fluid retention from any other underlying comorbidities. We will hold Lasix on discharge and patient we will follow up with his PCP to resume if indicated. . Procedure(s): MRCP(ABDWO)CHOLANGIOPANCREATOG REASON: ELEVATED LIVER ENZYMES COMPARISON: CT abdomen and pelvis 07/13/2024 TECHNIQUE: Routine images are obtained in the coronal and axial plane with T1, proton density, T2 and gradient recalled sequences. MRCP images were generated following coronal fluid sensitive acquisition followed by maximum pixel intensity projection technique. FINDINGS: There is a very small stones present in an otherwise normal-appearing gallbladder. There is no wall thickening or edema. Common duct is normal caliber at 5 mm. There are no focal filling defects to suggest choledocholithiasis however the visualized gallstones are very small and may be difficult to see on MRCP. There are no focal liver lesions. The pancreas appears normal, there is no evidence of mass or pancreatitis. Visualized portions of the kidneys appear normal. There are no focal fluid collections. There is no free fluid. IMPRESSION: 1. Multiple very small stones in the gallbladder, there is no wall thickening or edema. 2. Common duct appears normal at 5 mm and there is no MR CP evidence of choledocholithiasis. CT ABDOMEN/PELVIS W/O CONTRAST HISTORY: Elevated liver function tests COMPARISON: None TECHNIQUE: Multiple sequential axial images of the abdomen and pelvis were obtained from the dome of the diaphragm through symphysis pubis. Patient was not given contrast through intravenous route. Oral contrast was not given. FINDINGS: No pleural effusion is seen bilaterally. There is no evidence of parenchymal disease or pulmonary nodule of the visualized lower lungs. Degenerative changes of the thoracolumbar spine are present. The heart is not enlarged. Liver measures 16.4 cm. Calcified granuloma are seen in the liver and spleen. Gallbladder is distended with gallstones and sludge material. There is right anterior renal cyst measuring 4.5 cm. The liver, spleen, adrenal glands and pancreas are unremarkable. There is no evidence of hydronephrosis bilaterally. No evidence of renal stone is seen. Fecal material is seen in the colon. There are normal size retroperitoneal and mesenteric lymph nodes. No ascites is seen. Atherosclerotic changes are present. Pelvic sidewalls are symmetric bilaterally. There are bilateral inguinal hernias with fat content. Prostate gland measures 6.1 cm. Bladder is well distended without wall thickening. IMPRESSION: 1. Distended gallbladder with gallstones and sludge material. Fecal material in the colon. There are bilateral inguinal hernias with fat content. US ABDOMINAL RUQ\E\LTD HISTORY: elevated lft COMPARISON: None FINDINGS: There is mild fatty infiltration of the liver. There are no focal liver masses. The liver is not enlarged.Previous CT same day showed definite small stones in the gallbladder. These are not well visualized by ultrasound. The gallbladder appears otherwise normal, there is no wall thickening or pericholecystic edema. Common duct is normal at 5 mm.. There is a 4 cm simple appearing cyst right kidney. Right kidney is otherwise normal with no evidence of mass, hydronephrosis or stone.The pancreas is obscured by overlying bowel gas. Intrahepatic biliary tree does not appear distended. IMPRESSION: 1. Previous CT the same day showed definite stones, these are not well visualized on the current ultrasound. 2. Gallbladder appears otherwise normal with no wall thickening or pericholecystic edema. 3. 4 cm right renal cyst. 4. Otherwise unremarkable exam although the pancreas was not well visualized. 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 Smith on 07/24/22 PERSISTENT AFIB SECONDARY HYPERCOAGULABLE STATE CHRONIC ANTI COAGULATION ON ELIQUIS DYSPHASIA AND DYSPHONIA KERATOCONJUNCTIVITIS HE PRESENTED WITH HYPOTENSIVE SYNCOPE ESTHER on CKD, DEHYDRATION, OBSTRUCTIVE JAUNDICE CHOLELITHIASIS CONSTIPATION BILATERAL INGUINAL FAT CONTAINING HERNIAS Discharge Instructions: Follow up with PCP in 3-7 days, would recommend repeat CMP to assess improvement in LFTs and renal function Home Medications: Active Scripts Latanoprost (Latanoprost) 0.005 % Drops, 1 DROP OD BID for 90 Days, #3 ML 0 Ref ills Prov:JIM NUNO MD 06/15/24 Loratadine (Loratadine) 10 Mg Tablet, 10 MG PO DAILY for 90 Days, #90 TAB Prov:JIM NUNO MD 06/15/24 Terazosin HCl (Terazosin HCl) 5 Mg Capsule, 5 MG PO DAILY for 90 Days, #90 CAP Prov:JIM NUNO MD 06/15/24 Semaglutide (Ozempic) 0.25 Mg/0.368 Ml Pen.injctr, 0.25 MG SQ QWEEK for 90 Days, #3 ML Prov:JIM NUNO MD 06/15/24 Dronedarone Hydrochloride (Multaq) 400 Mg Tablet, 400 MG PO BID for 90 Days, #180 TAB Prov:JIM NUNO MD 06/15/24 Metoprolol Tartrate (Metoprolol Tartrate) 25 Mg Tablet, 25 MG PO BID for 90 Days, #180 TAB Prov:JIM NUNO MD 06/15/24 Insulin Glargine,Hum.rec.anlog (Lantus Solostar) 100 Unit/Ml (3 Ml) Insuln.pen, 12 UNIT SQ PM for 90 Days, #5 ML 0 Refills Prov:JIM NUNO MD 06/15/24 Insulin Glargine,Hum.rec.anlog (Lantus Solostar) 100 Unit/Ml (3 Ml) Insuln.pen, 22 UNIT SQ AM for 30 Days, #7 ML 0 Refills Prov:JIM NUNO MD 06/15/24 Empagliflozin (Jardiance) 10 Mg Tablet, 10 MG PO DAILY for 90 Days, #90 TAB Prov:JIM NUNO MD 06/15/24 Ferrous Sulfate (Ferrous Sulfate) 325 Mg (65 Mg Iron) Ectab, 325 MG PO DAILY for 90 Days, #90 TAB.EC Prov:JIM NUNO MD 06/15/24 Famotidine (Famotidine) 20 Mg Tablet, 20 MG PO DAILY PRN for HEARTBURN for 90 Days, #90 TAB Prov:JIM NUNO MD 06/15/24 Apixaban (Eliquis) 5 Mg Tablet, 5 MG PO BID for 90 Days, #180 TAB Prov:JIM NUNO MD 06/15/24 Docusate Sodium (Docusate Sodium) 100 Mg Capsule, 100 MG PO DAILY PRN for CONSTIPATION for 90 Days, #90 CAP Prov:JIM NUNO MD 06/15/24 Atorvastatin Calcium (Atorvastatin Calcium) 20 Mg Tablet, 20 MG PO HS for 90 Days, #90 TAB Prov:JIM NUNO MD 06/15/24 Aspirin (Aspirin) 81 Mg Tab.chew, 81 MG PO DAILY, #90 TAB.CHEW Prov:JIM NUNO MD 06/15/24 Discontinued Reported Medications [tylenol arthritis] No Conflict Check, 1 TAB PO BID 07/20/22 Acetaminophen (Tylenol Extra Strength) 500 Mg Tablet, 500 MG PO AD PRN for PAIN, TAB 07/20/22 Aspirin (ASPIRIN 81 MG ECTAB) 81 Mg Ectab, 81 MG PO AM, TAB.EC 07/20/22 Famotidine (Famotidine) 20 Mg Tablet, 20 MG PO BID, TAB 06/29/22 Bisacodyl (Dulcolax 5Mg Tab) 5 Mg Tablet.dr, 5 MG PO DAILY PRN for constipation, TAB 06/29/22 Metoprolol Tartrate (Metoprolol Tartrate) 25 Mg Tablet, 25 MG PO BID, TAB 06/29/22 Terazosin HCl (Terazosin HCl) 10 Mg Capsule, 10 MG PO HS, CAP 06/29/22 Calcium Carbonate (Calcium) 600 Mg Tablet, 600 MG PO BID, TAB 06/29/22 Clopidogrel Bisulfate (Clopidogrel) 75 Mg Tablet, 75 MG PO AM, TAB 06/29/22 Atorvastatin Calcium (Atorvastatin Calcium) 20 Mg Tablet, 20 MG PO AM, TAB 06/29/22 Glipizide (Glipizide) 10 Mg Tablet, 10 MG PO BID, TAB 06/29/22 Linagliptin (Tradjenta) 5 Mg Tablet, 5 MG PO AM, TAB 06/29/22 Lisinopril (Lisinopril) 10 Mg Tablet, 10 MG PO AM, TAB 06/29/22 [Vitamin B 12] 1,000 No Conflict Check, 1 TAB PO AM 06/29/22 [Vitamin D] 25 No Conflict Check, 25 MCG PO AM 06/29/22 [Iron] No Conflict Check, 325 MG PO AM 06/29/22 [place]-3 Fatty Acids/Fish Oil ([place] 3 Fish Oil Softgel) 1 Each Capsule.dr, 1 EACH PO HS, CAP 06/29/22 Discontinued Scripts Furosemide (Furosemide) 20 Mg Tablet, 20 MG PO DAILY for 90 Days, #90 TAB Prov:JIM NUNO MD 06/15/24 Continued Medications: Apixaban (Eliquis) 5 Mg Tablet 5 MG PO BID for 90 Days, #180 TAB Aspirin (Aspirin) 81 Mg Tab.chew 81 MG PO DAILY, #90 TAB.CHEW Atorvastatin Calcium (Atorvastatin Calcium) 20 Mg Tablet 20 MG PO HS for 90 Days, #90 TAB Docusate Sodium (Docusate Sodium) 100 Mg Capsule 100 MG PO DAILY PRN for CONSTIPATION for 90 Days, #90 CAP Dronedarone Hydrochloride (Multaq) 400 Mg Tablet 400 MG PO BID for 90 Days, #180 TAB Empagliflozin (Jardiance) 10 Mg Tablet 10 MG PO DAILY for 90 Days, #90 TAB Famotidine (Famotidine) 20 Mg Tablet 20 MG PO DAILY PRN for HEARTBURN for 90 Days, #90 TAB Ferrous Sulfate (Ferrous Sulfate) 325 Mg (65 Mg Iron) Ectab 325 MG PO DAILY for 90 Days, #90 TAB.EC Insulin Glargine,Hum.rec.anlog (Lantus Solostar) 100 Unit/Ml (3 Ml) Insuln.pen 22 UNIT SQ AM for 30 Days, #7 ML 0 Refills Insulin Glargine,Hum.rec.anlog (Lantus Solostar) 100 Unit/Ml (3 Ml) Insuln.pen 12 UNIT SQ PM for 90 Days, #5 ML 0 Refills Latanoprost (Latanoprost) 0.005 % Drops 1 DROP OD BID for 90 Days, #3 ML 0 Refills Loratadine (Loratadine) 10 Mg Tablet 10 MG PO DAILY for 90 Days, #90 TAB Metoprolol Tartrate (Metoprolol Tartrate) 25 Mg Tablet 25 MG PO BID for 90 Days, #180 TAB Semaglutide (Ozempic) 0.25 Mg/0.368 Ml Pen.injctr 0.25 MG SQ QWEEK for 90 Days, #3 ML Terazosin HCl (Terazosin HCl) 5 Mg Capsule 5 MG PO DAILY for 90 Days, #90 CAP Discontinued Medications: Furosemide (Furosemide) 20 Mg Tablet 20 MG PO DAILY for 90 Days, #90 TAB Time spent arranging discharge: 31-60 minutes RAMIREZ MULLEN MD Jun 16, 2024 17:11
--- NOTE | 2024-06-16 18:05 | NUR ---
pt was able to eat his supper and will discharge after he finishes his supper. pt and were given examples of foods to eat to avoid any gallbladder irritants or flares ups. pt was taken to private vehicle by w/tito
[2024-06-16] MEDS ORDERED: tamSULOsin HCL 0.4 MG CAP.ER.24H PO SCH (21:00)
== END 2024-06-16 18:15 | disposition home or self-care (01) | DRG 312 ==
LOC: EDH 23:20 → EDHIP 06-15 03:30 → 2DH 06-15 04:22
PROVIDERS: ADMIT Internal Medicine; ATTEND Internal Medicine
DX: R55 Syncope and collapse (principal); D68.69 Other thrombophilia; N17.9 Acute kidney failure, unspecified; I13.0 Hypertensive heart and chronic kidney disease with heart failure and stage 1 through stage 4 chronic kidney disease, or unspecified chronic kidney disease; I50.32 Chronic diastolic (congestive) heart failure; I48.19 Other persistent atrial fibrillation; N13.8 Other obstructive and reflux uropathy; R17 Unspecified jaundice; I95.9 Hypotension, unspecified; K80.20 Calculus of gallbladder without cholecystitis without obstruction; D69.6 Thrombocytopenia, unspecified; N18.31 Chronic kidney disease, stage 3a; E11.22 Type 2 diabetes mellitus with diabetic chronic kidney disease; I25.10 Atherosclerotic heart disease of native coronary artery without angina pectoris; E86.0 Dehydration; I77.89 Other specified disorders of arteries and arterioles; E11.42 Type 2 diabetes mellitus with diabetic polyneuropathy; E78.2 Mixed hyperlipidemia; K59.00 Constipation, unspecified; N40.1 Benign prostatic hyperplasia with lower urinary tract symptoms; Z79.01 Long term (current) use of anticoagulants; Z79.4 Long term (current) use of insulin; Z82.49 Family history of ischemic heart disease and other diseases of the circulatory system; Z79.899 Other long term (current) drug therapy
CPT/HCPCS: 36415; 74176; 74181; 76705; 80048; 80053; 80076; 81001; 82550; 82948; 83605; 83690; 84145; 84484; 85025; 85027; 87086; 93005; G0378; J0696; J1650; J1815; J2543; J3490; J7030; S8037

== ENCOUNTER 2024-08-03 07:48 | Day surgery (SDC) | payer OTHER ==
[2024-07-29 11:42] LABS: BASOPHILS # (AUTO) 0.03 K/uL (0.00-0.20); BASOPHILS % (AUTO) 0.6 % (0.0-5.0); EOSINOPHILS # (AUTO) 0.19 K/uL (0.00-0.70); HEMATOCRIT 37.7 % (42-54); IMMATURE GRANULOCYTE ABSOLUTE 0.01 K/uL (0-1); LYMPHOCYTES # (AUTO) 1.4 K/uL (1.0-4.8); LYMPHOCYTES % (AUTO) 29.5 % (21.0-51.0); MEAN CORPUSCULAR HEMOGLOBIN 32.1 pg (27.0-33.0); MEAN CORPUSCULAR HGB CONC 33.2 g/dL (32.0-36.0); MEAN CORPUSCULAR VOLUME 96.9 fL (79-99); MONOCYTES # (AUTO) 0.6 K/uL (0.1-1.0); MONOCYTES % (AUTO) 13.1 % (3.0-13.0); NEUTROPHILS # (AUTO) 2.5 K/uL (1.8-7.7); NEUTROPHILS % (AUTO) 52.6 % (40.0-77.0); PLATELET COUNT (AUTO) 161 K/uL (130-400); RED BLOOD CELL COUNT(AUTO) 3.89 MIL/uL (4.50-6.20); RED CELL DISTRIBUTION WIDTH 13.9 % (11.0-15.5); WHITE BLOOD COUNT (AUTO) 4.8 K/uL (4.8-10.8)
[2024-07-29 11:51] LABS: INR 1.08 (0.85-1.15); PROTHROMBIN TIME 11.4 SEC (9.6-11.6)
[2024-07-29 11:52] LABS: PARTIAL THROMBOPLASTIN TIME 31.6 SEC (26.3-35.5)
[2024-07-29 11:54] LABS: CREATININE 1.7 mg/dL (0.5-1.3); POTASSIUM 4.9 mmol/L (3.5-5.1)
[2024-07-29 12:33] VITALS: BP 108/46; PULSE 50; RESP 17; TEMP 97.5
--- NOTE | 2024-07-30 16:45 | NUR ---
RE: LABS REPORTED BMP RESULTS TO DR PUCKETT, NO NEW ORDERS RECEIVED.
[2024-08-03] VITALS (17 sets, daily range): BP systolic 117–139; BP diastolic 50–69; PULSE 58–70; RESP 14–19; TEMP 97.1–98
[~2024-08-03] VITALS: Ht 180.3 cm; Wt 92.4 kg
[~2024-08-03 07:48] MED LIST changes: +ACET-2247 PO; -ACET-2743 PO; -AEC81 PO; +APIX5TAB PO; -BISA-189 PO; -CLOP75TA32 PO; +CYAN1TAB44 PO; +DOCU100C33 PO; +DRON400T7 PO; +EMPA10TA PO; +FERS325 PO; -FISH1CAP50 PO; -GLIP10TA16 PO; +INSU3INS3 SQ; -IRON PO; +LATA2.5D14 OD; -LINA5TAB PO; -LISI10TA24 PO; +LORA10TA7 PO; -TERA10CA4 PO; -VITAMIN B 12 PO; -tylenol arthritis PO
[2024-08-03] MEDS ORDERED: LACTATED RINGERS 1000ML 0 ML IV ONE (08:27)
[2024-08-03] MEDS ORDERED: ceFAZolin SODIUM 2 GM VIAL ONE (08:27)
[2024-08-03] MEDS ORDERED: 0.9%NACL 1000ML 1,000 ML IV ONE (08:33)
--- NOTE | 2024-08-03 09:56 | EKG ---
[facility] Test Date: 2024-08-03 Test Time: 09:39:03 Pat Name: JESUS SARMIENTO Department: COUNTS INCLUDE 234 BEDS AT THE [facility] Room: COUNTS INCLUDE 234 BEDS AT THE [facility] 17 Gender: M Inclusion Teacher: [id number] : 1945 Requested By: CYNDEE ESTEBAN Order Number: [id number] Reading MD: Norma Hoover Measurements Intervals [place] Rate: 49 P: 19 SD: 194 QRS: -38 QRSD: 97 T: 20 QT: 489 QTc: 443 Interpretive Statements Sinus bradycardia Atrial premature complex Left axis deviation Compared to ECG 06/14/2024 23:35:01 Atrial premature complex(es) now present Left-axis deviation now present Sinus rhythm no longer present Electronically Signed On 08-03-2024 12:25:04 CDT by Norma Hoover Please click the below link to view image of tracing.
[2024-08-03] MEDS ORDERED: LIDOCAINE PF 100MG/5ML (2%) SYRINGE 5ML ONE (10:09)
[2024-08-03] MEDS ORDERED: dexaMETHasone SOD PHOSPHATE 4 MG/ML 1ML VIAL ONE (10:09)
[2024-08-03] MEDS ORDERED: proPOFol 10 MG/ML 20ML VIAL IV ONE (10:10)
[2024-08-03] MEDS ORDERED: ondanSETRON 4MG INJ ONE (10:10)
[2024-08-03] MEDS ORDERED: rocuRONium bROMide 10MG/1ML 5ML VL ONE (10:10)
[2024-08-03] MEDS ORDERED: ePHEDrine SULFate 50 MG/ML AMPULE ONE (10:25)
[2024-08-03] MEDS ORDERED: BUPIvacaine/PF 0.25% 30ML VIAL IJ ONE (10:31)
[2024-08-03] MEDS: BUPIvacaine/PF 0.5% 30ML VIAL INJ ONE (10:38)
[2024-08-03] MEDS ORDERED: FENTanyl CITRate PF 50 MCG/1 ML 2ML VIAL ONE (10:40)
[2024-08-03] MEDS ORDERED: NEOSTIGMINE METHYLSULFATE 1MG/ML IV ONE (11:11)
[2024-08-03] MEDS ORDERED: GLYCOPYRROLATE 0.2 MG/ML 5 ML VIAL ONE (11:11)
--- NOTE | 2024-08-03 11:38 | OP ---
Operative Note: DATE OF PROCEDURE: 08/03/24 SURGEON: LALO CAMEJO MD BABY FORMULA MIXER: [] ANESTHESIA: [] General ANESTHESIOLOGIST/LINK TRAINER: [] PREOPERATIVE DIAGNOSIS: [] History of gallstone pancreatitis POSTOPERATIVE DIAGNOSIS: [] The same SYNOPSIS: [] PROCEDURE: [] Laparoscopic cholecystectomy ESTIMATED BLOOD LOSS: [] Minimal INDICATIONS: [] DESCRIPTION OF PROCEDURE: []With the patient prepped in the usual fashion a supraumbilical incision was additionally directed to meet with placement of the trocar and abdomen insufflated. Three 5 mm trochars were placed in the right upper quadrant under direct vision. The gallbladder was exposed adhesions were taken down and I dissected triangle of [place]. There was significant adhesions attached to the gallbladder and they were taking primarily bluntly and with cautery dissection. The cystic duct was clearly identified was triple clipped and divided and the cystic artery was double clipped and divided. I took the gallbladder from the liver using cautery dissection and after removed from the liver bed I placed an in a bag. I cauterized the liver bed and I placed 40 cc of Marcaine 0.25% in the side of the abdomen as an abdominal tap block under direct vision. I placed Surgicel powder in the area of the liver bed to aid hemostasis. And after adequate hemostasis and irrigation I removed all the trochars under direct vision and the gallbladder was removed from the supraumbilical incision. After removing the gallbladder I placed interrupted [id number] Vicryl's and the fascia. All incisions were closed with 4-0 Monocryl and Steri-Strip. Patient was stable at the end of the procedure LALO CAMEJO MD Aug 03, 2024 11:38
[2024-08-03] MEDS ORDERED: IBUP-2077 PO (12:48)
--- NOTE | 2024-08-03 13:06 | NUR ---
Full and complete discharge instructions given to Patient and Family in [place] by NurseGeneva RN both verbally and in writing. Explained Surgical procedure precautions and follow up. Lap incisions x 4 all clean and dry. All questions answered. PIV removed with catheter tip intact. Home with Family W/C to POV.
== END 2024-08-03 13:10 | disposition home or self-care (01) ==
LOC: DAH 07:48
PROVIDERS: ATTEND Surgery
DX: K80.12 Calculus of gallbladder with acute and chronic cholecystitis without obstruction (principal); I10 Essential (primary) hypertension; I25.10 Atherosclerotic heart disease of native coronary artery without angina pectoris; E78.5 Hyperlipidemia, unspecified; E66.9 Obesity, unspecified; E11.9 Type 2 diabetes mellitus without complications; Z87.891 Personal history of nicotine dependence; I48.91 Unspecified atrial fibrillation; Z88.8 Allergy status to other drugs, medicaments and biological substances; Z79.4 Long term (current) use of insulin; Z79.01 Long term (current) use of anticoagulants; Z98.890 Other specified postprocedural states; Z79.899 Other long term (current) drug therapy
CPT/HCPCS: 80048; 85025; 85610; 85730; 36415; 47562; 93005; 00790; 82948 ×2; 88304; A6260; J1100; A4663; J7030 ×2; J3010; J0665 ×2; J3490 ×3; J2003; J2704; J2405; J2710; J0690; C1769 ×3; A4649; A4215; A4213; A4222; A4221; A4216; A4450; A4223 ×2; J7120

== ENCOUNTER → 2024-08-10 | Outpatient (CLI) | payer OTHER ==
[~2024-08-10] MED LIST changes: +IBUP-2077 PO
--- NOTE | 2024-08-10 11:12 | HMCIMG ---
Exam Type: US VENOUS DOPPLER UNILATERAL Clinical Information: EDEMA Comparison: None Findings: The examination shows normal deep venous system. There is normal compressibility at all levels. There is no intraluminal clot. There is no occlusion. Adequate response is obtained on augmentation. Impression: No evidence of DVT.
== END | disposition home or self-care (01) ==
LOC: RAH 10:38
PROVIDERS: ATTEND Internal Medicine
DX: R60.9 Edema, unspecified (principal)
CPT/HCPCS: 93971